=== PATIENT | female | born 1970 | race African-American/Black ===

== ENCOUNTER 2021-02-10 06:27 | Emergency (ER) | payer MEDICAID, OTHER ==
[~2021-02-10] VITALS: Ht 170.2 cm; Wt 77.0 kg
[2021-02-10] MEDS ORDERED: OXYCODONE HCL/ACETAMINOPHEN 5/325MG TABLET PO ONE (06:45)
[2021-02-10] MEDS ORDERED: MORPHINE SULFATE 4 MG/ML CPJ (NOT FOR IM USE) IV STA (06:48)
[2021-02-10] MEDS ORDERED: ONDANSETRON HCL 4MG/2ML INJ IV ONE (07:00)
[2021-02-10] MEDS ORDERED: PROPOFOL 200MG/20ML VIAL IV ONE (07:00)
[2021-02-10] MEDS ORDERED: DIPHENHYDRAMINE 50MG/ML VIAL IV ONE (07:00)
[2021-02-10] MEDS ORDERED: KETAMINE HCL 50 MG/ML 10ML IV ONE (07:00)
[2021-02-10] MEDS ORDERED: T3 PO ×3 (09:46→13:02)
[2021-02-10] MEDS ORDERED: IBUP-2028 PO ×3 (09:46→13:02)
[2021-02-10] MEDS ORDERED: KETOROLAC 30MG/ML VIAL IV ONE (12:15)
[2021-02-10 13:09] VITALS: BP 155/89
== END 2021-02-10 14:26 | disposition home or self-care (01) ==
LOC: ER 06:27
DX: S53.124A Posterior dislocation of right ulnohumeral joint, initial encounter (principal); W08.XXXA Fall from other furniture, initial encounter; Y93.89 Activity, other specified; Y92.018 Other place in single-family (private) house as the place of occurrence of the external cause
CPT/HCPCS: 24600; 73070; 96374; 96375; 99152; 99285; J1200; J1885; J2270; J2405; J2704; J3490; A4565

== ENCOUNTER 2021-05-15 11:08 | Emergency (ER) | payer MEDICAID ==
[~2021-05-15] VITALS: Ht 165.1 cm; Wt 100.0 kg
[~2021-05-15 11:08] MED LIST: IBUP-2028 PO; T3 PO
[2021-05-15 12:07] VITALS: BP 134/88
== END 2021-05-15 12:14 | disposition left against medical advice (07) ==
LOC: EDBD 11:08 → ER 11:08
DX: M25.521 Pain in right elbow (principal)
CPT/HCPCS: 81025; 99282